=== PATIENT | female | born 1995 | race Caucasian/White ===

== ENCOUNTER 2016-06-01 19:15 | Emergency (ER) | payer MEDICAID ==
[~2016-06-01] VITALS: Ht 157.5 cm; Wt 81.6 kg
[2016-06-01 19:21] VITALS: BP 127/79; PULSE 80; RESP 16; TEMP 97.6; O2SAT 97
--- NOTE | 2016-06-01 19:35 | NUR ---
Patient to ER bed 05 to gown for evaluation. Side rails up.
--- NOTE | 2016-06-01 19:36 | NUR ---
Pt brought by self, A&Ox4, pt c/o headache x 3 days, skin pink and warm, cap refill <3, ambulatory, denies N/V/D. VSS.
--- NOTE | 2016-06-01 20:46 | NUR ---
Dr Tan at bedside examining patient
[2016-06-01 21:07] VITALS: BP 127/79; PULSE 80; RESP 16; TEMP 97.6; O2SAT 97
== END 2016-06-01 21:07 | disposition home or self-care (01) ==
LOC: SED 19:15
DX: G44.209 Tension-type headache, unspecified, not intractable (principal)
CPT/HCPCS: 81025; 99281

== ENCOUNTER 2017-10-29 22:00 | Emergency (ER) | payer MEDICAID ==
[~2017-10-29] VITALS: Ht 157.5 cm; Wt 91.6 kg
[2017-10-29 22:41] VITALS: BP_SYST 124
[2017-10-29] MEDS ORDERED: IBUPROFEN 800 MG TABLET PO ONE (23:15)
[2017-10-29 23:37] VITALS: BP_SYST 126
== END 2017-10-29 23:37 | disposition home or self-care (01) ==
LOC: SED 22:00
DX: S93.602A Unspecified sprain of left foot, initial encounter (principal); W50.1XXA Accidental kick by another person, initial encounter; Y93.01 Activity, walking, marching and hiking; Y92.69 Other specified industrial and construction area as the place of occurrence of the external cause; Y99.8 Other external cause status
CPT/HCPCS: 99284

== ENCOUNTER 2018-06-14 11:45 | Emergency (ER) | payer MEDICAID ==
[~2018-06-14] VITALS: Ht 157.5 cm; Wt 90.7 kg
[2018-06-14 11:54] VITALS: BP_SYST 137
[2018-06-14 12:40] VITALS: BP_SYST 137
== END 2018-06-14 12:40 | disposition home or self-care (01) ==
LOC: SED 11:45
DX: R19.7 Diarrhea, unspecified (principal); R03.0 Elevated blood-pressure reading, without diagnosis of hypertension
CPT/HCPCS: 81025; 99283

== ENCOUNTER 2019-02-03 16:35 | Emergency (ER) | payer MEDICAID ==
[~2019-02-03] VITALS: Ht 157.5 cm; Wt 90.7 kg
[2019-02-03 17:40] VITALS: BP_SYST 121
[2019-02-03 18:44] LABS: BASOPHILS # (AUTO) 0.1 K/uL (0.0-0.2); BASOPHILS % (AUTO) 0.7 % (0.0-2.0); EOSINOPHILS # (AUTO) 0.2 K/uL (0.0-0.4); EOSINOPHILS % (AUTO) 1.8 % (0.0-4.0); HEMATOCRIT 34.4 % (36-48); HEMOGLOBIN 11.8 g/dL (12.0-16.0); LYMPHOCYTES % (AUTO) 31.8 % (20.5-51.5); MEAN CORPUSCULAR HEMOGLOBIN 30 pg (27-31); MEAN CORPUSCULAR HGB CONC 34 % (32-36); MEAN CORPUSCULAR VOLUME 89 fL (79.0-98.0); MONOCYTES # (AUTO) 0.8 K/uL (0.0-1.0); MONOCYTES % (AUTO) 6.1 % (1.7-9.3); NEUTROPHILS # (AUTO) 7.6 K/uL (1.8-7.7); NEUTROPHILS % (AUTO) 59.6 % (40.0-70.0); PLATELET COUNT (AUTO) 299 K/uL (130-430); RED BLOOD CELL COUNT(AUTO) 3.88 MIL/uL (4.2-6.2); RED CELL DISTRIBUTION WIDTH 13.2 % (9.0-15.0); WHITE BLOOD COUNT (AUTO) 12.7 K/uL (4.8-10.8)
[2019-02-03] MEDS: NACL 0.9% 1,000 ML IV ONE (18:54)
[2019-02-03 19:55] VITALS: BP_SYST 121
== END 2019-02-03 19:55 | disposition home or self-care (01) ==
LOC: SED 16:35
DX: O20.0 Threatened abortion (principal); Z3A.19 19 weeks gestation of pregnancy; O08.83 Urinary tract infection following an ectopic and molar pregnancy
CPT/HCPCS: 36415; 76815; 85025; 86900; 86901; 87086; 99284; J7030